=== PATIENT | female | born 1985 | race Caucasian/White ===

== ENCOUNTER 2017-01-23 14:11 | Emergency (ER) | payer OTHER ==
[~2017-01-23] VITALS: Ht 162.6 cm; Wt 90.7 kg
[~2017-01-23 14:11] MED LIST: FLOMAX0.4 M1 PO; PERCOCET 5-3251 EACH PO; TYLENOL WITH C1 EACH PO
[2017-01-23 17:31] VITALS: BP 134/66
--- NOTE | 2017-01-23 18:09 | ED GENERAL ADULT ---
History of Present Illness General Chief Complaint: General Adult Stated Complaint: 36 WEEKS PANIC ATTACK Source: patient Exam Limitations: no limitations Vital Signs & Intake/Output Vital Signs & Intake/Output Vital Signs Date Time Temp Pulse Resp B/P Pulse O2 O2 Flow FiO2 Ox Delivery Rate 01/23 1731 97.1 99 18 134/66 96 Room Air 01/23 1414 97.7 106 16 135/80 99 Room Air Allergies Coded Allergies: MDX - Hydrocodone (From VICODIN) (Intermediate, GI DISTRESS 12/16/11) MDX - SULFA (sulfonamide) (SULFA (SULFONAMIDE)) (TACHYCARDIA 07/15/12) MDX - Acetaminophen (From PERCOCET) (Intermediate, GI DISTRESS 12/16/11) MDX - Oxycodone (From PERCOCET) (Intermediate, GI DISTRESS 12/16/11) morphine (Intermediate, FLUSHED, NAUSEA 01/19/16) Reconcile Medications Oxycodone HCl/Acetaminophen (Percocet 5-325 MG Tablet) 1 EACH TABLET 1 TAB PO Q6HR PRN BREAKTHROUGH PAIN Tamsulosin HCl (Flomax) 0.4 MG CAP.ER.24H 1 CAP PO DAILY KIDNEY STONE Tylenol With Codeine (Tylenol With Codeine #3 Tablet) 1 EACH TABLET 1 TAB PO Q6HR PRN PAIN Triage Note: PT HERE FOR PANIC ATTACK STATES SHE HAS BEEN GETTING THEM A LOT OVER THE PAST MONTH. PT IS 36 WEEKS AND STATES SHE IS NOT HAVING ANY ABD CRAMPING OR VAGINAL DISCHARGE. Triage Nurses Notes Reviewed? yes Onset: Abrupt Duration: day(s):, intermittent Timing: recent history Severity: mild, moderate No Modifying Factors: none : Yes Patient currently breastfeeds: No HPI: 31-year-old female comes into emergency room with complaints of intermittent panic attacks to have been going on recently. Patient saw her [facility] doctor. Patient is 36 weeks . She is a . She reports that she has been getting feelings of anxiety, feeling like things are closing in on her, shakiness, feeling her heart is racing and feeling flushed. She has a history of panic attacks reports that this feels similar to her previous any contacts. She was currently diagnosed with gestational diabetes. She has not been diagnosed with preeclampsia. She reports that she feels like she's been having some intermittent contractions at her sporadic but nothing on a consistent basis. She denies any vaginal bleeding or leakage of fluid. Denies any headache. Denies any other associated symptoms. (BLANCA MACEDO) Past History Travel History Traveled to [place] past 21 day No Medical History Any Pertinent Medical History? 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 No (BLANCA MACEDO) Review of Systems Review of Systems Constitutional: Reports: no symptoms. EENTM: Reports: no symptoms. Respiratory: Reports: no symptoms. Cardiovascular: Reports: no symptoms. GI: Reports: no symptoms. Genitourinary: Reports: no symptoms. Musculoskeletal: Reports: no symptoms. Skin: Reports: no symptoms. Neurological/Psychological: Reports: see HPI. Hematologic/Endocrine: Reports: no symptoms. Immunologic/Allergic: Reports: no symptoms. All Other Systems: Reviewed and Negative (BLANCA MACEDO) Physical Exam Physical Exam General Appearance: well developed/nourished, no apparent distress, alert Head: atraumatic, normal appearance Eyes: Bilateral: normal appearance, EOMI. Ears, Nose, Throat: normal pharynx, normal ENT inspection, hearing grossly normal Neck: normal inspection, full range of motion Respiratory: normal breath sounds, no respiratory distress Cardiovascular: regular rate/rhythm Gastrointestinal: soft Back: normal inspection Extremities: swelling Neurologic/Psych: awake, alert, oriented x 3, normal gait, normal mood/affect Skin: intact, normal color Core Measures ACS in differential dx? No CVA/TIA Diagnosis: No Severe Sepsis Present: No Septic Shock Present: No (BLANCA MACEDO) Progress Differential Diagnoses I considered the following diagnoses in my evaluation of the patient: Anxiety, panic disorder, preeclampsia, gestational diabetes, early labor, Plan of Care: Orders Procedure Date/time Status URINALYSIS 01/23 170 Complete Laboratory Tests 01/23/17 1711: Urinalysis MOD H, Urine Color YEL, Urine Clarity HAZY H, Urine pH 6.0, Ur Specific Trion >= 1.030, Urine Protein 30 H, Urine Ketones >=80, Urine Nitrite NEG, Urine Bilirubin NEG@ICTO, Urine Urobilinogen 1.0, Ur Leukocyte Esterase TRACE H, Ur Microscopic SEDIMENT EXAMINED, Urine WBC 5-10 H, Ur Epithelial Cells MANY H, Urine Bacteria MOD H, Urine Mucus MANY H, Urine Hemoglobin NEG, Urine Glucose NEG Initial ED EKG: none Comments: 01/23/2017 9:41:30 PM I spoke with the BABITA Jay from [facility]. She is going to call the childbirth center. Patient is going to be sent over for a nonstress test as well as blood work and heart tones. I discussed with her the patient's blood pressure and a small amount of protein in the urine. Patient will need to be watched closely for preeclampsia. She also has some mild swelling in her lower legs. She currently has not any chest pain or shortness of breath. No suspicion for pulmonary embolism or any type of cardiac event. Her other symptoms seem to be consistent with anxiety/panic disorder. Case was discussed with Dr. sharif. Patient was wheeled over to the childbirth center. (JENIFER JC,BLANCA) Departure Departure Disposition: HOME OR SELF CARE Condition: Stable Clinical Impression Primary Impression: Panic disorder Secondary Impressions: Proteinuria Referrals: JER HAYNES,MARY Moy (PCP/Family) Additional Instructions: Go directly to the childbirth center. Return if any concerns worsening symptoms. Please go over all results of today's visit with your primary care doctor. Contact your primary care doctor to let them know you were here in the emergency room. There may be nonspecific findings which may not be related to your visit today here in the emergency room but may require further evaluation and chronic monitoring by your primary care doctor. If you had a laceration today the chance of foreign body always remains. You should follow-up with your primary care doctor for recheck in 3-5 days for a wound check. If you had an x-ray done there is a chance that a fracture could have been missed on initial read and you should follow-up with your primary care doctor for repeat x-rays if symptoms persist. If your blood pressure was elevated here in the emergency room please have rechecked by her primary care doctor within the next 48 hours by your primary care doctor. If you were prescribed a narcotic here in the emergency room or any type of controlled substances you're not allowed to drive while taking this medication or operate any type of heavy machinery. Narcotics can make you feel lightheaded dizziness nausea and can cause constipation. You may need to case picker a stool softener. Thank you for choosing emergency room. Please return to the emergency room immediately if you have any other concerns worsening of symptoms. Departure Forms: Customer Survey General Discharge Information (BLANCA MACEDO) PA/AMMUNITION ASSEMBLY II LABORER Co-Sign Statement Statement: ED Attending supervision documentation- x I saw and evaluated the patient. I have also reviewed all the pertinent lab results and diagnostic results. I agree with the findings and the plan of care as documented in the PA's/AMMUNITION ASSEMBLY II LABORER's documentation. [] I have reviewed the ED Record and agree with the PA's/AMMUNITION ASSEMBLY II LABORER's documentation. [] Additions or exceptions (if any) to the PAs/AMMUNITION ASSEMBLY II LABORER's note and plan are summarized below: [] (PHAN HAYNES,IRINA) Critical Care Note Critical Care Note Critical Care Time: non-applicable (BLANCA MACEDO)
== END 2017-01-23 18:16 ==
LOC: ERH 14:11
DX: O99.89 Other specified diseases and conditions complicating pregnancy, childbirth and the puerperium (principal); F41.0 Panic disorder [episodic paroxysmal anxiety]; O12.13 Gestational proteinuria, third trimester; Z3A.36 36 weeks gestation of pregnancy
CPT/HCPCS: 81001; 87086; G0463

== ENCOUNTER 2017-02-09 05:57 | Inpatient (IN) | payer OTHER ==
[~2017-02-09] VITALS: Ht 162.6 cm; Wt 92.1 kg
--- NOTE | 2017-02-09 09:02 | Operative Report ---
Operative/Inv Procedure Report Surgery Date: 02/09/17 Name of Procedure: Repeat section Pre-Operative Diagnosis: Patient's desire Post-Operative Diagnosis: Repeat section Estimated Blood Loss: 350 Surgeon/Pmo Business Analyst: ACE HAYNES,ANDRÉS LY Anesthesia: block Monitors: FHR 144 Urine Output: 250 Drains: nicole Specimens: placenta Operative/Procedure Note Note: The patient was taken to the operating room for repeat low transverse section a Nicole catheter was placed in the bladder heart rates are 1 44 bpm in the left lower quadrant the abdomen was prepped the patient was placed in the left lateral tilt. The patient was grounded after checking for the adequacy of anesthesia a Pfannenstiel incision was made over the old incision. Incision was carried down sharply to the fascia which was incised in the midline sharply the incision was carried out laterally sharply. The fascia was then divided from the underlying rectus muscles in the superior and inferior direction sharply the rectus muscle bundles were divided in the midline sharply the peritoneum was entered well above the dome of the bladder in the midline sharply. The uterus was checked for any adhesions and there were none a bladder flap was created on the lower uterine segment. The lower uterine segment was entered in the midline bluntly and the incision carried out laterally bluntly. The infant was delivered from the vertex position through clear amniotic fluid the wyatt-pharynx was bulb suction and the cord was doubly clamped and cut the was handed to the pediatric attendant. The placenta was manually extracted the interior of the uterus was wiped clean with wet laps the uterus was externalized. The uterine incision was closed in 2 layers the first a running locking stitch and the second an imbricating over the first 0 Polysorb sutures were. small hematoma at left angle was repaired with one figure of eight suture. The abdominal/peritoneal cavity was irrigated copiously the uterus was returned to its normal anatomical position the incision was once again checked for hemostasis which was judged to be excellent the parietal peritoneum was reapproximated in simple running fashion of 0 Polysorb suture. The fascia was reapproximated with 2 simple running 0 Polysorb sutures overlapping in the midline. Leila's fascia was reapproximated with a 3-0 undyed Polysorb suture in a simple running fashion the skin was closed with a shay.. Sponge instrument and needle counts were correct 3 estimated blood loss was 350 mL there were no complications no drains left at the end of the procedure was a Nicole catheter to the bladder.
--- NOTE | 2017-02-09 09:19 | History & Physical Pre-Op ---
General Information and HPI MD Statement: I have seen and personally examined OZIEL RIDDLE and documented this H&P. The patient is a 31 year old F who presented with a patient stated chief complaint of requesting a repeat c/s at 39 weeks. 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 Allergies/Medications Allergies: Coded Allergies: Sulfa (Sulfonamide Antibiotics) (Intermediate, TACHYCARDIA 02/09/17) acetaminophen (From VICODIN) (Intermediate, GI DISTRESS 02/09/17) hydrocodone (From VICODIN) (Intermediate, GI DISTRESS 02/09/17) morphine (Intermediate, FLUSHED, NAUSEA 01/19/16) oxycodone (From PERCOCET) (Intermediate, GI DISTRESS 02/09/17) Home Med list Oxycodone HCl/Acetaminophen (Percocet 5-325 MG Tablet) 1 EACH TABLET 1 TAB PO Q6HR PRN BREAKTHROUGH PAIN Tamsulosin HCl (Flomax) 0.4 MG CAP.ER.24H 1 CAP PO DAILY KIDNEY STONE Tylenol With Codeine (Tylenol With Codeine #3 Tablet) 1 EACH TABLET 1 TAB PO Q6HR PRN PAIN Compliance With Home Meds: GOOD Past History Medical History Neurological: NONE EENT: NONE Cardiovascular: NONE Respiratory: NONE Gastrointestinal: GALL STONES Hepatic: NONE Renal: nephrolithiasis Musculoskeletal: NONE Psychiatric: bipolar disease, PANIC DISORDER Endocrine: NONE 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 Denies: chills, fever. EENTM: Denies: blurred vision, double vision, visual changes. Cardiovascular: Denies: chest pain, edema, orthopena, palpitations. Respiratory: Denies: cough, short of breath. GI: Denies: diarrhea, nausea, vomiting. Genitourinary: Denies: dysuria, frequency, hematuria. Neurological/Psychological: Denies: anxiety, depressed. Hematologic/Endocrine: Denies: bleeding. Date of LMP: 05/12/16 Exam & Diagnostic Data Last 24 Hrs of Vital Signs/I&O Intake & Output 02/09 0800 02/09 0000 02/08 1600 Intake Total Output Total Balance Patient 203 lb Weight Physical Exam General Appearance Alert, Oriented X3, Cooperative, No Acute Distress Skin No Rashes Neck Supple Cardiovascular Regular Rate Lungs Clear to Auscultation Abdomen GRAVID fh40CM Neurological Normal Gait, Normal Speech, Strength at 5/5 X4 Ext, Normal Tone, Sensation Intact, Reflexes 2+ Extremities No Edema Last 24 Hrs of Labs/Zane: Microbiology 02/09 906 URINE ROUT: Urine Culture - ORD 02/10 604 URINE ROUT: Urine Culture - COLB Assessment/Plan Assessment/Plan: iup AT TERM 39 weeks Requesting repeat c/s Gestational diabetes on insulin 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
[2017-02-09 19:36] VITALS: BP 116/65
[2017-02-10 09:29] LABS: ABSOLUTE BASOPHIL COUNT 0 /CUMM (0.0-0.2); ABSOLUTE EOSINOPHIL COUNT 0.1 /CUMM (0.0-0.7); ABSOLUTE GRANULOCYTE CT 8.2 /CUMM (1.4-6.5); ABSOLUTE LYMPH COUNT 1.2 /CUMM (1.2-3.4); ABSOLUTE MONOCYTE COUNT 0.4 /CUMM (0.10-0.60); BASOPHIL % 0.1 % (0.0-2.0); EOSINOPHIL % 0.8 % (0-5); GRANULOCYTE % 83.1 % (42.2-75.2); MEAN CORPUSCULAR HGB 27.8 PG (27.0-31.0); MEAN CORPUSCULAR HGB CONC 33.1 G/DL (33.0-37.0); MEAN CORPUSCULAR VOLUME 83.9 FL (81.0-99.0); MEAN PLATELET VOLUME 9.4 FL (7.4-10.4); PLATELET COUNT 151 /CUMM (130-400); RED BLOOD CELL CT 2.98 /CUMM (4.20-5.40); WHITE BLOOD CELL COUNT 9.9 /CUMM (4.8-10.8)
--- NOTE | 2017-02-10 11:39 | PN- Post Delivery/GYN ---
Subjective Subjective: feeling well oob Review of Systems Constitutional: Denies: chills, fever. EENTM: Denies: blurred vision, double vision, visual changes. Cardiovascular: Denies: chest pain, edema, palpitations. Respiratory: Denies: cough, short of breath. Gastrointestinal: Denies: diarrhea, nausea, vomiting. Neurological/Psychological: Denies: anxiety, depressed. Objective Last 24 Hrs of Vital Signs/I&O vss Vital Signs Date Time Temp Pulse Resp B/P B/P Pulse O2 O2 Flow FiO2 Mean Ox Delivery Rate 02/09 193 116/65 Physical Exam General Appearance Alert, Oriented X3, Cooperative, No Acute Distress Cardiovascular Regular Rate Lungs Clear to Auscultation Abdomen Soft, incision clean and dry Neurological Normal Gait, Normal Speech Pelvic (FEMALE) lochia serosanganous Current Medications: Current Medications Sig/Indira Start time Last Medication Dose Route Stop Time Status Admin Acetaminophen 1,000 MG ONE TIME ONE 02/09 2300 DC 02/09 IV 02/09 2301 2307 Acetaminophen 650 MG Q4P PRN 02/09 0915 AC PO Bisacodyl 10 MG DAILY NEEDED PRN 02/09 0915 AC VT Diphenhydramine HCl 25 MG Q6P PRN 02/09 0915 AC 02/09 IV 2302 Docusate Sodium 100 MG AT BEDTIME PRN 02/09 0915 AC PO Hydroxyzine HCl 50 MG AT BEDTIME NEED.. 02/10 0000 AC PO Ibuprofen 800 MG Q6P PRN 02/09 0915 AC PO Ketorolac 30 MG .STK-MED ONE 02/10 0305 DC Tromethamine IM 02/10 0306 Ketorolac 30 MG Q6P PRN 02/09 0915 DC 02/10 Tromethamine IV 02/10 0914 0312 Lactated Ringer's 1,000 ML Q8H 02/09 1515 AC 02/09 IV 2307 Magnesium Hydroxide 30 ML DAILY NEEDED PRN 02/09 915 AC PO Methylergonovine 200 MCG EVERY 4 HRS/AWAKE 02/09 1200 DC 02/09 Maleate PO 02/09 2001 1849 Metoclopramide HCl 10 MG Q6P PRN 02/09 0945 AC IV Naloxone HCl 0.2 MG .Q5MIN PRN 02/09 0945 AC IV Oxytocin 20 UNITS Q8H 02/09 915 DC 02/09 Lactated Ringer's 1,000 ML IV 02/09 1714 0940 Senna 187 MG AT BEDTIME NEED.. 02/09 0915 AC PO Last 24 Hrs of Labs/Zane: Laboratory Tests 02/10/17 0850: CBC w Diff NO MAN DIFF REQ, RBC 2.98 L, MCV 83.9, MCH 27.8, RDW 16.0 H, MPV 9.4, Gran % 83.1 H, Lymphocytes % 12.4 L, Monocytes % 3.6, Eosinophils % 0.8, Basophils % 0.1, Absolute Granulocytes 8.2 H, Absolute Lymphocytes 1.2, Absolute Monocytes 0.4, Absolute Eosinophils 0.1, Absolute Basophils 0, PUBS MCHC 33.1 Assessment/Plan Assessment/Plan pod #1 vss had signifigant post bleeding rx with increased pitocin fundal massage and methergine bleeding is now normal lochia. pt is oob all the time which lowers her risk for DVT.will hold lovenox for now Problem List: 1. Attending MD Review Statement Attending Statement Attending MD Statement: examined this patient, discussed with nursing
[2017-02-11] MEDS ORDERED: DOCUSATE SODIU100 M3 PO (11:20)
[2017-02-11] MEDS ORDERED: FERROUS SULFAT325 M3 PO (11:20)
[2017-02-11] MEDS ORDERED: IBUPROFEN800 M1 PO (11:20)
[2017-02-11] MEDS ORDERED: TYLENOL WITH C1 EACH PO (11:20)
[2017-02-11] MEDS ORDERED: PRENATAL TABLE1 EAC2 PO (11:20)
--- NOTE | 2017-02-11 11:28 | PN- Post Delivery/GYN ---
Subjective Subjective: READY FOR DISCHARGE HOME Review of Systems: NEG FOR CARDIAC PULMONARY GI COMPLAINTS Objective Last 24 Hrs of Vital Signs/I&O AFEBRILE VSS Physical Exam General Appearance Alert, Oriented X3, Cooperative, No Acute Distress Skin No Significant Lesion Cardiovascular Regular Rate Lungs Normal Air Movement Abdomen Normal Bowel Sounds, Soft, No Tenderness, No Hepatospenomegaly, INCISION CLEAN DRY INTACT FUNDUS FIRM 2 TO 3 FB BELOW UMBILICUS NONTENDER Neurological Normal Gait, Normal Speech Extremities No Tenderness/Swelling Reproductive (FEMALE) Normal female genitalia, AVGE LOCHIA Current Medications: Current Medications Sig/Indira Start time Last Medication Dose Route Stop Time Status Admin Acetaminophen 650 MG Q4P PRN 02/09 0915 AC PO Bisacodyl 10 MG DAILY NEEDED PRN 02/09 0915 AC ID Diphenhydramine HCl 25 MG Q6P PRN 02/09 0915 AC 02/09 IV 2302 Docusate Sodium 100 MG AT BEDTIME PRN 02/09 0915 AC PO Hydroxyzine HCl 50 MG AT BEDTIME NEED.. 02/10 0000 AC PO Ibuprofen 800 MG Q6P PRN 02/09 0915 AC 02/11 PO 1030 Lactated Ringer's 1,000 ML Q8H 02/09 1515 AC 02/09 IV 2307 Magnesium Hydroxide 30 ML DAILY NEEDED PRN 02/09 0915 AC PO Metoclopramide HCl 10 MG Q6P PRN 02/09 0945 AC IV Naloxone HCl 0.2 MG .Q5MIN PRN 02/09 0945 AC IV Senna 187 MG AT BEDTIME NEED.. 02/09 0915 AC PO Last 24 Hrs of Labs/Zane: POD # 1 8.3/25 H/H (NL HGB ELEC IN PREG) Imaging Findings: N/A Assessment/Plan Assessment/Plan STABLE PPD/ POD #2 BABY AND MOTHER READY FOR DISCHARGE POST OP INSTRUCTIONS/ WOUND CARE DISCUSSED PALMA OUT @ PP RN VISIT EARLY THIS WEEK POST OP ANEMIA- RX PN VITS. IRON. STOOL SOFTENER CK CBC 6 WKS PP Problem List: 1. 2. Term of female 3. delivery delivered 4. Anemia associated with acute blood loss 5. Status post repeat low transverse section 6. Gestational diabetes Attending MD Review Statement Attending Statement Attending MD Statement: examined this patient, discussed with family, reviewed EMR data (avail), discussed with nursing Attending Assessment/Plan: Wendi BOOKER MD
--- NOTE | 2017-03-06 10:35 | Surgical Discharge Summary ---
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 Belarusian Review of Systems: Patient denies nausea, vomiting, diarrhea, constipation, fevers, or chills. Hospital Course Course Attending Physician: ACE HAYNES,DAMON Baires Primary Care Physician: MARY RANDLE MD Hospital Course: The patient was admitted to the [facility] for an elective repeat section. She was taken to the operating room and after the induction of anesthesia he was prepped and draped in the usual sterile fashion procedure was undertaken without complications. Healing was good and postoperative course was unremarkable. By postoperative day #1 Espinal catheter was discontinued and the patient was ambulated she was started on a regular diet. By postoperative day #2 intra venous infusion was discontinued as the patient was tolerating a regular diet. By postoperative day #3 postoperative CBC was stable therefore the patient was discharged home. Complications: None Allergies: Coded Allergies: Sulfa (Sulfonamide Antibiotics) (Intermediate, TACHYCARDIA 02/25/17) hydrocodone (From VICODIN) (Intermediate, GI DISTRESS 02/25/17) morphine (Intermediate, FLUSHED, NAUSEA 02/25/17) oxycodone (From PERCOCET) (Intermediate, GI DISTRESS 02/25/17) Disposition Summary Disposition Principal Diagnosis: Repeat section Additional Diagnosis: None Discharge Disposition: home or self care Discharge Instructions General Discharge Information Code Status: Full Code Patient's Diet: Regular Patient's Activity: No heavy lifting pelvic rest for 6 weeks Follow-Up Instructions/Appts: Call immediately for any fevers chills abdominal pain visual changes chest pain or leaking from the wound. Call immediately for any heavy vaginal bleeding Medications at Discharge Discharge Medications: Stop taking the following medications: Tamsulosin HCl (Flomax) 0.4 MG CAP.ER.24H ORAL DAILY Qty = 14 Start taking the following new medications: Ibuprofen (Ibuprofen) 800 MG TABLET 800 Milligram ORAL EVERY SIX HOURS NEEDED as needed for UTERINE CRAMPING Qty = 60 Refills = 6 Comments: Last Taken:02/11/17 Time:09 Tylenol With Codeine (Tylenol With Codeine #3 Tablet) 300 MG-30 MG TABLET 1-2 Tablet ORAL EVERY 4 HOURS NEEDED as needed for PAIN SCALE 4-10 Qty = 30 No Refills Comments: Last Taken:02/11/17 Time:929 Docusate Sodium (Docusate Sodium) 100 MG CAPSULE 100 Milligram ORAL AT BEDTIME as needed for STOOL SOFTENER Qty = 60 Refills = 6 Vit No.130/Iron/FA ( Tablet) 27 MG IRON-800 MCG TABLET 1 Tablet ORAL DAILY Qty = 90 Refills = 3 Ferrous Sulfate (Ferrous Sulfate) 325 MG (65 MG IRON) TABLET 1 Tablet ORAL DAILY Qty = 30 Refills = 3 Attending MD Review Statement Attending Statement Attending MD Statement: examined this patient, discussed with family, discussed w/nursing
== END 2017-02-11 13:45 | DRG 765 ==
LOC: GNO 05:57 → SDA 07:00 → GNO 12:38
PROVIDERS: ADMIT Obstetrics & Gynecology
PROC: 10D00Z1 Extraction of Products of Conception, Low, Open Approach (ICD-10-PCS; principal; 2017-02-09)
DX: O34.211 Maternal care for low transverse scar from previous cesarean delivery (principal); O98.52 Other viral diseases complicating childbirth; D62 Acute posthemorrhagic anemia; O24.424 Gestational diabetes mellitus in childbirth, insulin controlled; O99.214 Obesity complicating childbirth; O72.2 Delayed and secondary postpartum hemorrhage; N85.8 Other specified noninflammatory disorders of uterus; Z3A.39 39 weeks gestation of pregnancy; Z37.0 Single live birth; Z68.28 Body mass index [BMI] 28.0-28.9, adult; J45.909 Unspecified asthma, uncomplicated; B00.9 Herpesviral infection, unspecified; O99.02 Anemia complicating childbirth
CPT/HCPCS: GNOS; 87086; 88307; J0131; J0690; J1200; J1885; J2210; J2310; J7120

== ENCOUNTER 2017-02-25 21:21 | Emergency (ER) | payer OTHER ==
[~2017-02-25] VITALS: Ht 162.6 cm; Wt 78.5 kg
[~2017-02-25 21:21] MED LIST changes: +DOCUSATE SODIU100 M3 PO; +FERROUS SULFAT325 M3 PO; +IBUPROFEN800 M1 PO; +PRENATAL TABLE1 EAC2 PO
--- NOTE | 2017-02-25 22:19 | ED GI/GU/ABDOMINAL COMPLAINT ---
History of Present Illness General Chief Complaint: Female Urogenital Problems Stated Complaint: VAG BLEEDING, S/P NATURAL DELIVERY 02/09 Source: patient Exam Limitations: no limitations Vital Signs & Intake/Output Vital Signs & Intake/Output Vital Signs Date Time Temp Pulse Resp B/P B/P Pulse O2 O2 Flow FiO2 Mean Ox Delivery Rate 02/26 0101 98.7 88 18 138/70 98 Room Air 02/25 2240 87 144/76 02/25 2240 87 144/76 02/25 2147 98.5 105 20 138/83 97 Room Air ED Intake and Output 02/26 0000 02/25 1200 Intake Total 0 Output Total Balance 0 Intake, Oral 0 Patient 173 lb Weight Weight Reported by Patient Measurement Method Allergies Coded Allergies: Sulfa (Sulfonamide Antibiotics) (Intermediate, TACHYCARDIA 02/25/17) hydrocodone (From VICODIN) (Intermediate, GI DISTRESS 02/25/17) morphine (Intermediate, FLUSHED, NAUSEA 02/25/17) oxycodone (From PERCOCET) (Intermediate, GI DISTRESS 02/25/17) Reconcile Medications Docusate Sodium 100 MG CAPSULE 100 MG PO AT BEDTIME PRN STOOL SOFTENER Ferrous Sulfate 325 MG (65 MG IRON) TABLET 1 TAB PO DAILY ANEMIA Ibuprofen 800 MG TABLET 800 MG PO Q6P PRN UTERINE CRAMPING Vit No.130/Iron/FA ( Tablet) 27 MG IRON-800 MCG TABLET 1 TAB PO DAILY VITAMIN SUPPORT Tylenol With Codeine (Tylenol With Codeine #3 Tablet) 300 MG-30 MG TABLET 1-2 TAB PO Q4P PRN PAIN SCALE 4-10 Triage Note: TRIAGE: PT TO ER C/C VAGINAL BLEEDING, UTERINE PAIN AND FATIGUE. ONSET OF PAIN TODAY AND VAGINAL BLEEDING AND FATIGUE STARTED LAST SUNDAY. 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 REPORTS 4 PADS IN LAST 8 HOURS. DENIES CLOTS. Triage Nurses Notes Reviewed? yes ? n Is pt currently ? No Onset: Gradual Duration: hour(s): Timing: single episode today Quality/Severity: cramping Location: vaginal Radiation: no radiation Prior Abdominal Problems: none Modifying Factors: Worsens With: other (vaginal bleeding). Associated Symptoms: vaginal bleeding HPI: 32 yo woman , delivered via 2 weeks ago, presents this evening with 3 days of vaginal bleeding that got worse today. She notes, "I started bleeding on sunday..... I saw my doctor who said that things looked okay... then tonight it started bleeding again... over a period of 8 hours, I soaked 4 pads.... dark blood, no clots." No bright red blood. She is not dizzy or syncopal. No dysuria, polyuria. She is otherwise well. Past History Travel History Traveled to [place] past 21 day No Medical History Any Pertinent Medical History? 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 No Review of Systems Review of Systems Constitutional: Reports: no symptoms. EENTM: Reports: no symptoms. Respiratory: Reports: no symptoms. Cardiovascular: Reports: no symptoms. GI: Reports: no symptoms. Genitourinary: Reports: no symptoms. Musculoskeletal: Reports: no symptoms. Skin: Reports: no symptoms. Neurological/Psychological: Reports: no symptoms. Hematologic/Endocrine: Reports: no symptoms. Immunologic/Allergic: Reports: no symptoms. All Other Systems: Reviewed and Negative Physical Exam Physical Exam General Appearance: well developed/nourished, mild distress Head: atraumatic, normal appearance Eyes: Bilateral: normal appearance. Ears, Nose, Throat, Mouth: hearing grossly normal, moist mucous membrane Neck: normal inspection, supple, full range of motion, normal alignment Respiratory: normal breath sounds, chest non-tender, no respiratory distress, quiet respiration, lungs clear Cardiovascular: regular rate/rhythm Gastrointestinal: normal bowel sounds, soft, non-tender, no organomegaly Pelvic: small amt of dark blood in vaginal vault. no clots. Extremities: normal range of motion Neurologic/Psych: no motor/sensory deficits, awake, alert, oriented x 3 Skin: intact, normal color, warm/dry Core Measures ACS in differential dx? No Severe Sepsis Present: No Septic Shock Present: No Progress Differential Diagnosis: post- hemorrhage Plan of Care: Orders Procedure Date/time Status HUMAN BETA HCG TITRE 02/25 2213 Complete COMPREHENSIVE METABOLIC PANEL 02/25 2213 Complete CBC WITHOUT DIFFERENTIAL 02/25 2213 Complete Laboratory Tests 02/25/172225: Anion Gap 10, Estimated GFR > 60, BUN/Creatinine Ratio 22.9, Glucose 100 H, Calcium 9.0, Total Bilirubin 0.5, AST 19, ALT 35, Alkaline Phosphatase 85, Total Protein 6.7, Albumin 4.0, Globulin 2.7, Albumin/Globulin Ratio 1.5, Beta HCG, Quant 3.0, CBC w Diff NO MAN DIFF REQ, RBC 4.28, MCV 82.1, MCH 26.2 L, RDW 16.5 H, MPV 9.0, Gran % 70.3, Lymphocytes % 17.5 L, Monocytes % 6.8, Eosinophils % 4.9, Basophils % 0.5, Absolute Granulocytes 6.8 H, Absolute Lymphocytes 1.7, Absolute Monocytes 0.7 H, Absolute Eosinophils 0.5, Absolute Basophils 0.1, PUBS MCHC 31.9 L Initial ED EKG: none Departure Departure Disposition: HOME OR SELF CARE Condition: Stable Clinical Impression Primary Impression: hemorrhage, delivered Referrals: JER HAYNES,MARY Moy (PCP/Family) Departure Forms: Customer Survey General Discharge Information Comments 02/26/17, 0:35.... discussed with dr. maloney (ob)... pt stable for discharge with close follow up later today in the office. blood type o+... no need for rhogam.
[2017-02-25 22:41] LABS: ABSOLUTE BASOPHIL COUNT 0.1 /CUMM (0.0-0.2); ABSOLUTE EOSINOPHIL COUNT 0.5 /CUMM (0.0-0.7); ABSOLUTE GRANULOCYTE CT 6.8 /CUMM (1.4-6.5); ABSOLUTE LYMPH COUNT 1.7 /CUMM (1.2-3.4); ABSOLUTE MONOCYTE COUNT 0.7 /CUMM (0.10-0.60); BASOPHIL % 0.5 % (0.0-2.0); EOSINOPHIL % 4.9 % (0-5); GRANULOCYTE % 70.3 % (42.2-75.2); HEMATOCRIT 35.1 % (37-47); MEAN CORPUSCULAR HGB 26.2 PG (27.0-31.0); MEAN CORPUSCULAR HGB CONC 31.9 G/DL (33.0-37.0); MEAN CORPUSCULAR VOLUME 82.1 FL (81.0-99.0); PLATELET COUNT 289 /CUMM (130-400); RBC DISTRIBUTION WIDTH 16.5 % (11.5-14.5); RED BLOOD CELL CT 4.28 /CUMM (4.20-5.40); WHITE BLOOD CELL COUNT 9.7 /CUMM (4.8-10.8)
[2017-02-26 01:01] VITALS: BP 138/70
== END 2017-02-26 01:04 ==
LOC: ERH 21:21
PROVIDERS: Pediatrics
DX: O72.2 Delayed and secondary postpartum hemorrhage (principal)
CPT/HCPCS: 96360; 96361

== ENCOUNTER 2017-03-11 16:46 | Emergency (ER) | payer OTHER ==
[~2017-03-11] VITALS: Ht 165.1 cm; Wt 76.7 kg
--- NOTE | 2017-03-11 17:06 | ED PSYCHIATRIC COMPLAINT ---
History of Present Illness General Chief Complaint: Psychiatric Related Complaint Stated Complaint: +SI Source: patient, old records Exam Limitations: no limitations Vital Signs & Intake/Output Vital Signs & Intake/Output Vital Signs Date Time Temp Pulse Resp B/P B/P Pulse O2 O2 Flow FiO2 Mean Ox Delivery Rate 03/11 2001 97.6 91 16 142/93 98 Room Air 03/11 1651 96.9 107 15 106/76 96 Room Air Room Air Allergies Coded Allergies: Sulfa (Sulfonamide Antibiotics) (Intermediate, TACHYCARDIA 03/11/17) hydrocodone (From VICODIN) (Intermediate, GI DISTRESS 03/11/17) morphine (Intermediate, FLUSHED, NAUSEA 03/11/17) oxycodone (From PERCOCET) (Intermediate, GI DISTRESS 03/11/17) Reconcile Medications Docusate Sodium 100 MG CAPSULE 100 MG PO AT BEDTIME PRN STOOL SOFTENER Ferrous Sulfate 325 MG (65 MG IRON) TABLET 1 TAB PO DAILY ANEMIA Ibuprofen 800 MG TABLET 800 MG PO Q6P PRN UTERINE CRAMPING Olanzapine (Zyprexa) 2.5 MG TABLET 1 TAB PO QPM MENTAL HEALTH (Reported) Vit No.130/Iron/FA ( Tablet) 27 MG IRON-800 MCG TABLET 1 TAB PO DAILY VITAMIN SUPPORT Sertraline HCl 100 MG TABLET 1.5 TAB PO DAILY BI POLAR (Reported) Tylenol With Codeine (Tylenol With Codeine #3 Tablet) 300 MG-30 MG TABLET 1-2 TAB PO Q4P PRN PAIN SCALE 4-10 Triage Note: PT TO ED FOR +SI THOUGHTS, PT HAS HISTORY OF BIPOLAR AND PANIC DISORDER AND DOES NOT FEEL SAFE AT HOME. PT ALSO THINKS, "IT MIGHT BE POST- TOO." PT DELIVERED February. -HI THOUGHTS. HAS BEEN COMPLIANT WITH MEDS BUT DOSES HAVE RECENTLY CHANGED. Triage Nurses Notes Reviewed? yes Onset: Last week Duration: day(s):, constant, continues in ED, getting worse Timing: recent history Severity: moderate, severe Associated Symptoms: anxiety, impaired concentration, insomnia, suicidal ideation LMP (ages 10-50): unknown : No Patient currently breastfeeds: Yes HPI: Patient delivered 02/08/2019 and is breast-feeding. Several weeks prior to admission patient has had increased depression started on Zoloft and Zyprexa with continued insomnia anorexia and fatigue. She sought about suicide without a plan. Tried marijuana to help her sleep which was ineffective. She denies fever chills nausea vomiting diarrhea abdominal pain chest pain shortness breath headache dysuria rash bleeding hallucination homicidal ideation. (IRINA CHISHOLM MD) Past History Travel History Traveled to [place] past 21 day No Medical History Any Pertinent Medical History? 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 No (IRINA CHISHOLM MD) Review of Systems Review of Systems Constitutional: Reports: no symptoms. EENTM: Reports: no symptoms. Respiratory: Reports: no symptoms. Cardiovascular: Reports: no symptoms. GI: Reports: no symptoms. Genitourinary: Reports: no symptoms. Musculoskeletal: Reports: no symptoms. Skin: Reports: no symptoms. Neurological/Psychological: Reports: see HPI, anxiety, depressed, emotional problems. Hematologic/Endocrine: Reports: no symptoms. Immunologic/Allergic: Reports: no symptoms. All Other Systems: Reviewed and Negative (IRINA CHISHOLM MD) Physical Exam Physical Exam General Appearance: well developed/nourished, alert, awake, anxious, moderate distress, obese Head: atraumatic, normal appearance Eyes: Bilateral: normal appearance, PERRL, EOMI. Ears, Nose, Throat: normal pharynx, normal ENT inspection, hearing grossly normal, moist mucus membranes Neck: normal inspection, supple, full range of motion, no midline tenderness Respiratory: normal breath sounds, chest non-tender, no respiratory distress, quiet respiration, lungs clear Cardiovascular: regular rate/rhythm, normal peripheral pulses, norml femoral pulses equa Gastrointestinal: normal bowel sounds, soft, non-tender, no organomegaly Extremities: normal range of motion Neurological/Psychiatric: no motor/sensory deficits, awake, alert, anxious, heading pinner II-XII nml as tested, depressed affect, oriented x 3 Appearance/Memory/Insight: appropriate appearance, impaired insight Behavoir/Eye Contact/Speech: cooperative, normal speech Thoughts/Hallucinations: no apparent hallucination Skin: intact, normal color, warm/dry SAD PERSONS SAD PERSONS Response Value Depression/Hopelessness? yes 2 Previous Attempts/Psych Care yes 1 Excessive Ethanol/Drug Use? yes 1 Rational Thinking Loss? yes 2 Social Support? has support 0 Stated Future Intent? yes 2 Total 8 SAD PERSONS Done? yes (IRINA CHISHOLM MD) Progress Differential Diagnosis: drug intoxication, drug overdose, drug withdrawal, electrolyte abnormality, hypoglycemia Plan of Care: Orders Procedure Date/time Status ED CRISIS PSYCH CONSULT 03/11 1716 Active Continuous Observation Monitor 03/11 1703 Active URINE DRUG SCREEN FOR ER ONLY 03/11 1703 Complete ETHANOL 03/11 1703 Complete COMPREHENSIVE METABOLIC PANEL 03/11 1703 Complete CBC WITHOUT DIFFERENTIAL 03/11 1703 Complete Laboratory Tests 03/11/17 1720: Anion Gap 12, Estimated GFR > 60, BUN/Creatinine Ratio 10.0, Glucose 93, Calcium 9.3, Total Bilirubin 0.6, AST 23, ALT 43, Alkaline Phosphatase 96, Total Protein 7.3, Albumin 4.4, Globulin 2.9, Albumin/Globulin Ratio 1.5, CBC w Diff NO MAN DIFF REQ, RBC 5.02, MCV 78.7 L, MCH 25.3 L, RDW 16.9 H, MPV 9.2, Gran % 70.5, Lymphocytes % 19.8 L, Monocytes % 5.9, Eosinophils % 3.5, Basophils % 0.3, Absolute Granulocytes 7.1 H, Absolute Lymphocytes 2.0, Absolute Monocytes 0.6, Absolute Eosinophils 0.3, Absolute Basophils 0, PUBS MCHC 32.2 L, Serum Alcohol < 10.0 03/11/17 1714: Urine Opiates Screen < 100.00, Methadone Screen < 40, Barbiturate Screen < 60, Ur Phencyclidine Scrn < 6.00, Amphetamines Screen 277, U Benzodiazepines Scrn < 85, Urine Cocaine Screen < 50, Urine Cannabis Screen 9.00 Hand-Off Endorsed To: JONELLE HAYNES,ZIA Baires Endorsed Time: 1899 Pending: consult (IRINA CHISHOLM MD) Departure Departure Disposition: STILL A PATIENT Condition: Stable Clinical Impression Primary Impression: Depression with suicidal ideation Referrals: MARY RANDLE MD (PCP/Family) Departure Forms: Customer Survey General Discharge Information (IRINA CHISHOLM MD) Departure Comments 03/11/17, 19:45pm... pt cleared by michele... pt safe for discharge. (JONELLE HAYNES,ZIA Baires)
[2017-03-11] MEDS ORDERED: SERTRALINE HCL100 MG PO (17:36)
[2017-03-11 17:37] LABS: ABSOLUTE BASOPHIL COUNT 0 /CUMM (0.0-0.2); ABSOLUTE EOSINOPHIL COUNT 0.3 /CUMM (0.0-0.7); ABSOLUTE GRANULOCYTE CT 7.1 /CUMM (1.4-6.5); ABSOLUTE MONOCYTE COUNT 0.6 /CUMM (0.10-0.60); BASOPHIL % 0.3 % (0.0-2.0); EOSINOPHIL % 3.5 % (0-5); GRANULOCYTE % 70.5 % (42.2-75.2); HEMATOCRIT 39.5 % (37-47); MEAN CORPUSCULAR HGB 25.3 PG (27.0-31.0); MEAN CORPUSCULAR HGB CONC 32.2 G/DL (33.0-37.0); MEAN CORPUSCULAR VOLUME 78.7 FL (81.0-99.0); MEAN PLATELET VOLUME 9.2 FL (7.4-10.4); PLATELET COUNT 313 /CUMM (130-400); RBC DISTRIBUTION WIDTH 16.9 % (11.5-14.5); RED BLOOD CELL CT 5.02 /CUMM (4.20-5.40)
[2017-03-11] MEDS ORDERED: ZYPREXA2.5 M1 PO (17:37)
--- NOTE | 2017-03-11 20:00 | ED PSYCH CRISIS CONSULTATION ---
Crisis Consult Basic Assessment Date of Consult: 03/11/17 Responsible Person/Accompanied By: self Insurance Authorization: Insurance #1: Insurance name: KEKE TORO. Phone number: Policy number: [id number] Group number: [id number] Authorization number: ED Provider: Patient's ED Provider: IRINA CHISHOLM MD Primary Care Physician: Patient's PCP: MARY RANDLE MD PCP's Current Psychiatrist: Dr. Lolita Mitchell Chief Complaint: Psychiatric Related Complaint Patient's Quote: "I was feeling a little unsafe" Present Illness: Pt is a 32 year old female who self presented in the ED complaining of having Bipolar Disorder and Suicidal Ideation. Pt has a long history of mental health treatment. Patient has made 2 suicide attempts (cutting in 2006, Overdose in 2003 by Tylenol #3 and Ambien which required stabilization in the ICU). Pt has been hospitalized psychiatrically at [facility] in 2008, [facility] in 2006, & [facility] in 1998. Pt reports she was diagnosed with Bipolar at age 14 and since then has been on a lot of medication to treat her mood ([place], Depakote, Lamicatal, and Gabepentin. She has been prescribed Seroquel, Ambien and Trazodone in the past for sleep, non of which she reports has been helpful. Pt reports she has been "stable" for the last 10 years and believes her mood swings, racing thoughts and inability to sleep may be related to post- depression (gave 1 month ago). Pt reports she really just needs to sleep which would be helpful for her. She reports she is in treatment at [facility] where she sees Dr. Lolita Mitchell and Mana Diana APRN. She has an appointment on with Mana. She also sees PARVEEN Arnold at [facility]. Pt does not endorse thoughts of self harm, thoughts of killing herself or others, or AH/VH. Pt reports she had thoughts of cutting herself today which is why she came to the ED. Crisis spoke with mother, Yanely Babb, ([phone]). Mother states that pt has been stable for a very long period of time. She reports she has a new job and is living at home with her two children to try to make ends meet. Mom reports that patient has been trying to stay on top of her depression. However, she believes that she thinks pt's hormones are "messed" up since she just gave a month ago. Mom reports that pt cut her wrist/forearm with a women's shaving razor, a few weeks ago, but it was nothing like what she used to do when she was younger. Mom believes pt is stressed out because of what is going on with her boyfriend (baby's father). Mom reports the pt's boyfriend lost his job and was evicted from his apartment. Mom reports pt boyfriend has been staying with them for a month and it was only supposed to be for a few nights. Mom has no concerns about abuse/ dv. Mom is concerned about allowing him to watch the baby alone as he is constantly falling asleep on the couch. Mom reports he has someo medical condition, but could not elaborate. [facility] consulted with Dr. Morrow who would like to hold the patient overnight and be re-evaluated in the morning. This would also allow crisis to contact her current treatment providers. This was explained to the patient however, the patient was adamant about signing herself out of the hospital. Patient reports she needs to go home to be with her baby and that her breasts are very full/ heavy. Pt reports she has an appointment with therapist, Deneen on Sunday and Mana on . Patient reports she will call both providers tomorrow to tell them she was in the ED today. We discussed the option to come back to the ED if she felt unsafe again, as well as calling the director of restaurant operations service for her current providers and/or 211 for EMPS. [facility] called pt's parents again. Crisis spoke to father, Cyrus Babb ([phone]). Informed patient that psychiatrist recommended pt stay over in the ED. He stated that would be fine. Crisis then informed him that pt does not want to stay. He stated that would be fine and he would come get her. Asked father to speak with daughter to try to convience her to stay overnight. He stated she needs to make the decision herself to stay and to just let him know when he should come pick her up. Patient's Address: [address] [place] [address] Other Who Do You Live With? Family (mom, dad, 2 kids) Family/Informants Interviewed: crisis spoke to mother and father of pt Allergies - Coded Allergies: Sulfa (Sulfonamide Antibiotics) (Intermediate, TACHYCARDIA 03/11/17) hydrocodone (From VICODIN) (Intermediate, GI DISTRESS 03/11/17) morphine (Intermediate, FLUSHED, NAUSEA 03/11/17) oxycodone (From PERCOCET) (Intermediate, GI DISTRESS 03/11/17) Current Medications - Scheduled Medications Ferrous Sulfate 325 MG (65 MG IRON) TABLET 1 TAB PO DAILY ANEMIA #30 TAB Prescribed by CARMELO BOOKER MD on 02/11/17 Last Taken: At an unknown date and time Olanzapine (Zyprexa) 2.5 MG TABLET 1 TAB PO QPM MENTAL HEALTH (Reported) Entered as Reported by KAVYA LOPES on 03/11/17 1737 Vit No.130/Iron/FA ( Tablet) 27 MG IRON-800 MCG TABLET 1 TAB PO DAILY VITAMIN SUPPORT #90 TAB Prescribed by CARMELO BOOKER MD on 02/11/17 Sertraline HCl 100 MG TABLET 1.5 TAB PO DAILY BI POLAR (Reported) Entered as Reported by KAVYA LOPES on 03/11/17 1736 Scheduled PRN Medications Docusate Sodium 100 MG CAPSULE 100 MG PO AT BEDTIME PRN STOOL SOFTENER #60 CAP Prescribed by CARMELO BOOKER MD on 02/11/17 Ibuprofen 800 MG TABLET 800 MG PO Q6P PRN UTERINE CRAMPING #60 TAB Prescribed by CARMELO BOOKER MD on 02/11/17 Last Taken: At an unknown date and time Tylenol With Codeine (Tylenol With Codeine #3 Tablet) 300 MG-30 MG TABLET 1-2 TAB PO Q4P PRN PAIN SCALE 4-10 #30 TAB Prescribed by CARMELO BOOKER MD on 02/11/17 Last Taken: At an unknown date and time Laboratory Results: Laboratory Tests 03/11/17 1720: Anion Gap 12, Estimated GFR > 60, BUN/Creatinine Ratio 10.0, Glucose 93, Calcium 9.3, Total Bilirubin 0.6, AST 23, ALT 43, Alkaline Phosphatase 96, Total Protein 7.3, Albumin 4.4, Globulin 2.9, Albumin/Globulin Ratio 1.5, CBC w Diff NO MAN DIFF REQ, RBC 5.02, MCV 78.7 L, MCH 25.3 L, RDW 16.9 H, MPV 9.2, Gran % 70.5, Lymphocytes % 19.8 L, Monocytes % 5.9, Eosinophils % 3.5, Basophils % 0.3, Absolute Granulocytes 7.1 H, Absolute Lymphocytes 2.0, Absolute Monocytes 0.6, Absolute Eosinophils 0.3, Absolute Basophils 0, PUBS MCHC 32.2 L, Serum Alcohol < 10.0 03/11/17 1714: Urine Opiates Screen < 100.00, Methadone Screen < 40, Barbiturate Screen < 60, Ur Phencyclidine Scrn < 6.00, Amphetamines Screen 277, U Benzodiazepines Scrn < 85, Urine Cocaine Screen < 50, Urine Cannabis Screen 9.00 Past History Past Medical History Neurological: NONE EENT: NONE Cardiovascular: NONE Respiratory: NONE Gastrointestinal: NONE Hepatic: cholelithiasis Renal: nephrolithiasis Musculoskeletal: NONE Psychiatric: bipolar disease, PANIC DISORDER Endocrine: GESTATIONAL DIABETES Blood Disorders: NONE Cancer(s): NONE [employer]/Reproductive: NONE Past Surgical History Surgical History: none, breast biopsy, Psychosocial History Strengths/Capabilities: Pt reports she has been "stable" for 10 years remaining out of the hospital since 2006. 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 Physical Limitations (Interventions): none noted Psychiatric Treatment History Psych Treatment 1 Psychiatric Treatment Yes Inpatient Treatment Yes Location of Treatment [facility] Reason for Treatment SI Dates of Treatment 05/04/09-05/09/09 Response to Treatment good Psych Treatment 2 Psychiatric Treatment Yes Inpatient Treatment Yes Location of Treatment [facility] Reason for Treatment SI Dates of Treatment 2006 Response to Treatment good Psych Treatment 3 Psychiatric Treatment Yes Inpatient Treatment Yes Location of Treatment [facility] Reason for Treatment SI Dates of Treatment 06/20/99-07/04/99 Response to Treatment good Psych Treatment 4 Psychiatric Treatment Yes Outpatient Treatment Yes Location of Treatment [place] Reason for Treatment depression Dates of Treatment 02/08-10/13 Response to Treatment fair Diagnosis by History: Bipolar Disorder Major Depressive Disorder Borderline Personality Disorder Alcohol Abuse Cannabis Abuse Substance Use/Abuse History Drug Use/Abuse 1 Substances Used/Abused Yes Substance Used/Abused Marijuana First Use a long time ago Last Used recently tried it a few weeks ago to help with sleep How much used/taken unknown How often once recently to try to help her sleep Route of use inhale Drug Use/Abuse 2 Substances Used/Abused Yes Substance Used/Abused Nicotine First Use unk Last Used today How much used/taken 5 cigarettes per day How often daily For how long unk Route of use inhale Substance Abuse Treatment Substance Abuse Treatment Past Substance Abuse [place] No Current Mental Status Mental Status Orientation: Person, Place, Situation Affect: Anxious Speech: Normal Neuro-vegetative: Concentration Poor, Hyperactivity, Sleep Disturbance Appearance Appearance- Dress/Hygiene: pt presented in hospital issued scrubs pt has a few tattoos on left upper arm Behaviors Thought Process: WNL Thought Content: WNL Memory: WNL Insight: WNL SI/HI Risk Assessment Past Suicidal Ideation/Attempts Yes Current Suicidal Ideation/Att No Past Homicidal Ideation/Att: No Current Homicidal Ideation/Attempts No Degree of Intent: thoughts to cut not kill self Danger To: Self Risk Factors: high anxiety/distress, history of suicide atmpts, SA/MH hospitalized, substance abuse Lethality Ratin (mild) PTSD Checklist PTSD Done? patient declined ED Management Sitter: Yes Restraints: No DSM5/PS Stressors/Medical Prob Diagnosis' (DSM 5, Stressors, Medical): F31.9 Unspecified Bipolar Disorder R/O Major Depressive Disorder w/ peripartum onset Current GAF: 45 Departure Disposition Psych Medical Clearance Date: 03/11/17 Medically Cleared at: 1840 Time Started: 1839 Time Ended: 1909 Psychiatrist Consulted: Dr. Morrow Date Disposition Established: 03/11/17 Time Disposition Established: 1929 Plan for Disposition - Modality: Outpatient Facility: [facility] Follow-up Appt Date: 03/15/17 Contact: Mana Diana APRN Rationale for Disposition: Pt presented in ED reporting she was feeling unsafe and thinking about cutting herself. Pt reports that she is not thinking of killing herself or anyone else. She does not want to . She wants to sleep. Pt is not endorsing SI/HI or AH/ VH. Referrals JER HAYNES,MARY Moy (PCP/Family)
[2017-03-11 20:01] VITALS: BP 142/93
== END 2017-03-11 20:19 ==
LOC: ERH 16:46
PROVIDERS: Emergency Medicine
DX: F32.9 Major depressive disorder, single episode, unspecified (principal); R45.851 Suicidal ideations
CPT/HCPCS: 80307; G0463; G0480